=== PATIENT | male | born 1970 | race Two or more races ===

== ENCOUNTER 2017-08-09 05:22 | Day surgery (SDC) | payer BC ==
--- NOTE | 2017-08-06 12:43 | RADIOLOGY REPORT (SQ) ---
EXAM DESCRIPTION: CHEST PA/LATERAL COMPLETED DATE/TIME: 08/06/2017 12:14 pm REASON FOR STUDY: PRE-OP;SOB COMPARISON: None. EXAM PARAMETERS: NUMBER OF VIEWS: two views TECHNIQUE: Digital Frontal and Lateral radiographic views of the chest acquired. RADIATION DOSE: NA LIMITATIONS: none FINDINGS: LUNGS AND PLEURA: No opacities, masses or pneumothorax. No pleural effusion. MEDIASTINUM AND HILAR STRUCTURES: No masses or contour abnormalities. HEART AND VASCULAR STRUCTURES: Heart normal size. No evidence for failure. BONES: No acute findings. HARDWARE: None in the chest. OTHER: In the left upper quadrant at the bottom edge of the field of view, a 4.5 cm peripheral rim ca lcified structure is present which could be a splenic cyst, pancreatic tail cyst or renal mass. IMPRESSION: NO SIGNIFICANT RADIOGRAPHIC FINDING IN THE CHEST. Incidental finding of peripheral rim calcified structure in the left upper quadrant. This could repr esent a peripherally calcified pancreatic, renal, or splenic lesion. TECHNICAL DOCUMENTATION: JOB ID: [id number] [employer]- All Rights Reserved Reading location - IP/workstation name: [email or web address]
[2017-08-06 12:56] LABS: HEMOGLOBIN 15.9 g/dL (13.5-17.0); MEAN CORPUSCULAR HEMOGLOBIN 36.9 pg (27.0-33.4); MEAN CORPUSCULAR HGB CONC 35.3 g/dL (32.0-36.0); MEAN CORPUSCULAR VOLUME 105 fl (80-97); PLATELET COUNT 255 10^3/uL (150-450); RED CELL DISTRIBUTION WIDTH 13.6 % (11.5-14.0); WHITE BLOOD COUNT 6.2 10^3/uL (4.0-10.5)
[2017-08-06 13:25] LABS: ANION GAP 14 (5-19); BLOOD UREA NITROGEN 13 mg/dL (7-20); CALCIUM 9.4 mg/dL (8.4-10.2); CARBON DIOXIDE 24 mmol/L (22-30); CHLORIDE 110 mmol/L (98-107); GLUCOSE 102 mg/dL (75-110); POTASSIUM 4.1 mmol/L (3.6-5.0); SODIUM 147.7 mmol/L (137-145)
--- NOTE | 2017-08-06 13:40 | EKG REPORT ---
SEVERITY:- BORDERLINE ECG - SINUS RHYTHM BORDERLINE T ABNORMALITIES, INFERIOR LEADS : Confirmed by: Osmin Farrell MD 06-Aug-2017 13:39:10
[~2017-08-09 05:22] MED LIST: CEFAZOLIN 2 GM/D5W RTU 2 GM/50 ML RTUPB IV PRN; LACTATED RINGERS 1000 ML IV PRN; LIDOCAINE 0.5% INJ-PF (5 MG/ML) 50 ML SDV SUBCUT PRN
[2017-08-09] MEDS ORDERED: BUPIVACAINE HCL 0.25 % INJ/PF (2.5 MG/1 ML) 30 ML VIAL ONE (06:31)
[2017-08-09] MEDS ORDERED: MIDAZOLAM 2 MG/2 ML INJ ONE (07:20)
[2017-08-09] MEDS ORDERED: FENTANYL CITRATE INJ/PF 250 MCG/5 ML AMPULE ONE (07:20)
[2017-08-09] MEDS ORDERED: PROPOFOL INJ 200 MG/20 ML VIAL IV ONE (07:21)
[2017-08-09] MEDS ORDERED: ACETAMINOPHEN 1,000 MG/100 ML RTUPB IV ONE (07:21)
[2017-08-09] MEDS ORDERED: PROMETHAZINE HCL INJ 25 MG/1 ML VIAL IV PRN ×4 (08:02→11:36)
[2017-08-09] MEDS ORDERED: OXYCODONE-ACETAMINOPHEN 5-325 MG TABLET PO PRN ×4 (08:02→11:36)
[2017-08-09] MEDS ORDERED: MEPERIDINE HCL/PF INJ 25 MG/1 ML DISP.SYRIN IV PRN ×2 (08:02→11:36)
[2017-08-09] MEDS ORDERED: DIPHENHYDRAMINE HCL 50 MG/ML VIAL IV PRN ×2 (08:02→11:36)
[2017-08-09] MEDS ORDERED: FENTANYL CITRATE INJ/PF 100 MCG/2 ML AMPUL IV PRN ×6 (08:02→11:36)
[2017-08-09] MEDS ORDERED: LIDOCAINE 2% INJ-PF (20 MG/ML) 2 ML AMPUL ONE ×2 (08:17→16:52)
[2017-08-09] MEDS ORDERED: KETOROLAC TROMETHAMINE 60 MG/2 ML SDV ONE ×2 (08:17→16:52)
[2017-08-09] MEDS ORDERED: ONDANSETRON HCL INJ/PF 4 MG/2 ML SDV ONE ×2 (08:17→16:52)
[2017-08-09] MEDS ORDERED: GLYCOPYRROLATE 1 MG/5 ML SYRINGE ONE ×2 (08:17→16:52)
[2017-08-09] MEDS ORDERED: DEXAMETHASONE SOD PHOSPHATE INJ 4 MG/1 ML VIAL ONE ×2 (08:17→16:52)
[2017-08-09] MEDS ORDERED: NEOSTIGMINE METHYLSULFATE 10 MG/10 ML VIAL ONE ×2 (08:17→16:52)
[2017-08-09] MEDS: FENTANYL CITRATE INJ/PF 100 MCG/2 ML AMPUL ONE ×2 (11:15→11:36)
[2017-08-09] MEDS ORDERED: HYDROMORPHONE HCL INJ/PF 2 MG/ML AMPULE ONE (11:52)
--- NOTE | 2017-08-09 11:52 | Discharge Summary ---
Discharge Summary (SDC) - Discharge Final Diagnosis: ventral hernia Date of Surgery: 08/09/17 Discharge Date: 08/09/17 Condition: Stable Referrals: CAMILLE MAYFIELD MD [Primary Care Provider] - Discharge Diet: As Tolerated Respiratory Treatments at Home: Deep Breathing/Coughing, Incentive Spirometer Discharge Activity: No Lifting Over 10 Pounds Home Care Assistance: None Needed Report the Following to Your Physician Immediately: Shortness of Breath, Nausea , Vomiting, Increase in Pain, Fever over 101 Degrees, Unusual Bleeding, Redness , Swelling, Warmth
--- NOTE | 2017-08-09 12:05 | Operative Report ---
Nonrecallable Operative Report DATE OF SURGERY: 08/09/17 PREOPERATIVE DIAGNOSIS: ventral hernia POSTOPERATIVE DIAGNOSIS: 1. Supra umbilical ventral hernia. 2. Small umbilical hernia. OPERATION: Robot-assisted, laparoscopic ventral hernia repair with mesh. SURGEON: MONIQUE BAKER ANESTHESIA: GA TISSUE REMOVED OR ALTERED: None COMPLICATIONS: None apparent ESTIMATED BLOOD LOSS: Minimal PROCEDURE: Drains/implants: 10 x [address] hernia mesh. Procedure in detail: After informed consent was obtained, the patient was brought into the operating room and laid in the supine position. The area of the abdomen was prepped and draped in a normal sterile fashion. The left upper quadrant incision was created. The 5 mm camera and 5 mm trocar were introduced into the abdomen using the Optiview technique, under direct laparoscopic visualization. Once the trocar was within the abdominal cavity, gas insufflation was attached and pneumoperitoneum was achieved. A left lateral 12 mm abdominal trocar was placed under direct laparoscopic visualization. An 8 mm left lower quadrant robotic trocar was placed in similar fashion. The left upper quadrant 5 mm trocar was removed, and replaced with an 8 mm robotic trocar. The robot was brought over the patient and docked appropriately. I then assumed my position at the surgeon's console. The defect was easily brought into view. There was a large amount of omentum incarcerated within the hernia sac. This omentum was reduced using sharp dissection and Bovie electrocautery. After this was completed the supraumbilical defect was measured and found to be approximately 3-4 cm in total diameter. Another small umbilical hernia defect was found immediately inferior to the supraumbilical defect. Fat was cleaned away from the abdominal fascia. Next, number 1 V-lock nonabsorbable suture was used to close the ventral hernia defect, as well as bring the diastases recti together. Once this was completed, a [address] hernia mesh was chosen to adequately cover the defect. It was apposed to the anterior abdominal wall using the EPS system. The mesh was sutured to the anterior abdominal wall using 2-0 V lock suture in simple running fashion. After this was complete, robot was undocked and I resumed my position at the patient's bedside. The 8 mm trochars were closed using 0 Vicryl suture via the Endo Close device. 12 mm trocar site was closed similarly, using multiple interrupted 0 Vicryl sutures. Once this was complete, the skin was closed using 4-0 Vicryl Rapide suture in subcuticular fashion. Dressings were created, and the procedure was concluded. All sponge, instrument, and needle counts were correct 2. Condition: Stable.
[2017-08-09] MEDS ORDERED: HYDROCODONE/ACETAMINOPHEN 10-325 MG TABLET ONE (12:36)
[2017-08-09] MEDS ORDERED: KETOROLAC TROMETHAMINE INJ/PF 30 MG/1 ML SDV ONE (15:16)
[2017-08-09] MEDS ORDERED: HYDROCODONE/ACETAMINOPHEN 10-325 MG TABLET PO PRN (15:32)
[2017-08-09 15:58] VITALS: BP 155/99
== END 2017-08-09 15:35 | disposition home or self-care (01) ==
LOC: OROUT 05:22
PROVIDERS: ATTEND Surgery
DX: K43.9 Ventral hernia without obstruction or gangrene (principal); G47.33 Obstructive sleep apnea (adult) (pediatric); E66.9 Obesity, unspecified; E55.9 Vitamin D deficiency, unspecified; F17.210 Nicotine dependence, cigarettes, uncomplicated; Z68.34 Body mass index [BMI] 34.0-34.9, adult
CPT/HCPCS: 49652; S2900; 36415; 71046; 752; 80048; 85027; 93005; 93010; C1781; J0131; J0690; J1100; J1170; J1885; J2250; J2405; J2704; J3010; J3490